=== PATIENT | female | born 2000 | race Native Hawaiian/Other Pacific Islander ===

== ENCOUNTER 2020-09-09 15:46 | Outpatient (CLI) | payer OTHER | END 2020-09-09 22:46 | disposition home or self-care (01) | LOC: US 15:46 | PROVIDERS: ATTEND Registered Nurse | DX: R10.11 Right upper quadrant pain (principal) ==

== ENCOUNTER 2020-09-22 13:08 | Outpatient (CLI) | payer OTHER | END 2020-09-22 16:00 | disposition home or self-care (01) | LOC: NM 13:08 | PROVIDERS: ATTEND Nurse Practitioner | DX: R10.11 Right upper quadrant pain (principal) | CPT/HCPCS: A9537 ==

== ENCOUNTER 2021-10-26 17:12 | Outpatient (CLI) | payer OTHER | END 2021-10-26 19:14 | disposition home or self-care (01) | LOC: RAD 17:12 | PROVIDERS: ATTEND Nurse Practitioner | DX: M25.50 Pain in unspecified joint (principal) ==

== ENCOUNTER 2022-02-16 13:57 | Outpatient (CLI) | payer OTHER | END 2022-02-16 20:01 | disposition home or self-care (01) | LOC: RAD 13:57 | PROVIDERS: ATTEND Nurse Practitioner Family | DX: M06.4 Inflammatory polyarthropathy (principal) ==

== ENCOUNTER 2022-07-14 16:31 | Outpatient (CLI) | payer OTHER | END 2022-07-14 19:06 | disposition home or self-care (01) | LOC: RAD 16:31 | PROVIDERS: ATTEND Nurse Practitioner Family | DX: G90.09 Other idiopathic peripheral autonomic neuropathy (principal); M06.4 Inflammatory polyarthropathy; M25.50 Pain in unspecified joint; R53.83 Other fatigue; R76.0 Raised antibody titer ==